=== PATIENT | male | born 1945 | race Caucasian/White ===

== ENCOUNTER 2018-07-19 09:44 | Emergency (ER) | payer MEDICARE ==
--- NOTE | 2018-07-19 11:40 | UC ---
Eye Complaint HPI - HPI Summary HPI Summary: 73 y/o male presents to the urgent care c/o pt states his rt eye began to be irritated yesterday. pt states that his eyelid is giving him pain. sharp at times. - History of Current Complaint Chief Complaint: UCEye Stated Complaint: R EYE INJURY Time Seen by Provider: 07/19/18 11:38 Hx Obtained From: Patient Onset/Duration: Gradual Onset, Lasting Days - 1 days, Still Present, Worse Since - today Timing: Constant Severity Initially: Mild Severity Currently: Mild Pain Intensity: 1 Pain Scale Used: 0-10 Numeric Location of Injury: Eye Lid (upper) - RT eye lid w/ redness and swelling Character: Dull Aggravating Factor(s): Blinking, Other - touch Alleviating Factor(s): Nothing Associated Signs And Symptoms: Positive: Drainage (Clear), Swelling - RT upper eye lid. Negative: Photophobia, Vision Impairment Bilateral, Fever - Risk Factors Penetrating Injury Risk Factor: Negative Globe Rupture Risk Factors: Negative Acute Glaucoma Risk Factors: Negative Optic Artery Occlusion Risk Factors: Negative - Allergies/Home Medications Allergies/Adverse Reactions: Allergies Allergy/AdvReac Type Severity Reaction Status Date / Time No Known Allergies Allergy Verified 07/19/18 10:11 Home Medications: Home Medications Lisinopril TAB* [Prinivil TAB 10 MG*] 10 mg PO DAILY 07/19/18 [History Confirmed 07/19/18] Simvastatin [Zocor] 40 mg PO 07/19/18 [History] PMH/Surg Hx/FS Hx/Imm Hx Previously Healthy: Yes Endocrine History: Dyslipidemia Cardiovascular History: Hypertension - Surgical History Surgical History: Yes Surgery Procedure, Year, and Place: torn rotator cuff, carple tunnel. - Family History Known Family History: Positive: Cardiac Disease, Hypertension - Social History Occupation: Retired Lives: With Family Alcohol Use: Daily Substance Use Type: None Smoking Status (MU): Never Smoked Tobacco Review of Systems Constitutional: Negative Skin: Negative Eyes: Eye Redness - RT upper eye lid redness and swelling w/ mild pain ENT: Negative Respiratory: Negative Cardiovascular: Negative Gastrointestinal: Negative Genitourinary: Negative Motor: Negative Neurovascular: Negative Musculoskeletal: Negative Neurological: Negative Psychological: Negative Is Patient Immunocompromised?: No All Other Systems Reviewed And Are Negative: Yes Physical Exam - Summary Physical Exam Summary: Vital Signs Reviewed: Yes General: Well appearing, well nourished old male in no apparent pain distress Eyes: Positive: Conjunctiva Inflamed - Visual acuity: WNL,Visual raymundo: full to confrontation.mild periorbital soft tissue swelling at the RT upper eyelid with erythema and white small pustule in the medial side of eyelid, tender to palpation. PERRLA, EOMI intact w/out limitation or complaint of pain. eyelashes clear. mild tearing and yellowish drainage observed. No ciliary flush. No chemosis, No photophobia. Normal fundoscopic exam; no proptosis, exophthalmos, nystagmus. ENT: Positive: Normal ENT inspection, Hearing grossly normal, Pharynx normal, Nasal congestion, Nasal drainage - clear, TMs normal - B/L external ear canal clear , TM's WNL. Negative: Tonsillar swelling, Tonsillar exudate Neck: Positive: Supple, Nontender, No Lymphadenopathy Respiratory: Positive: Chest nontender, Lungs clear, Normal breath sounds, No respiratory distress Cardiovascular: Positive: RRR, No Murmur, Pulses Normal, Brisk Capillary Refill Abdomen Description: Positive: Nontender, No Organomegaly, Soft. Negative: CVA Tenderness (R), CVA Tenderness (L) Bowel Sounds: Positive: Present Musculoskeletal: Positive: Strength Intact, ROM Intact, No Edema Neurological Exam: Normal Psychological Exam: Normal Skin Exam: Normal Triage Information Reviewed: Yes Vital Signs: Initial Vital Signs Temp 97.9 F 07/19/18 10:06 Pulse 63 07/19/18 10:06 Resp 18 07/19/18 10:06 BP 112/71 07/19/18 10:06 Pulse Ox 97 07/19/18 10:06 Eye Complaint Course/Dx - Differential Dx/Diagnosis Differential Diagnosis/HQI/PQRI: Conjunctivitis, Corneal Abrasion, Foreign Body , Periorbital Cellulitis, Orbital Cellulitis, Other - hordelolum Provider Diagnoses: 1- Rt eye internal hordeolum. 2- Rt eye Periorbital cellulitis Discharge - Sign-Out/Discharge Documenting (check all that apply): Patient Departure - D/c home All imaging exams completed and their final reports reviewed: No Studies - Discharge Plan Condition: Stable Disposition: HOME Prescriptions: Cephalexin CAP* [Keflex CAP*] 500 mg PO TID #21 cap Erythromycin OPTH OINT* [Erythromycin 0.5% OPTH OINT*] 1 applic RIGHT EYE TID # 1 ophth.oint Patient Education Materials: Stye (ED), Periorbital Cellulitis in Adults (ED) Referrals: Kevon Easton DO [Primary Care Provider] - 3 Days Zack Elizabeth MD [Medical Doctor] - 3 Days Additional Instructions: 1-Please take Keflex PO as directed to alleviate symptoms. 2-Please apply ophthalmic ointment in your RT eye as directed. Please apply warm compresses and massage the eye with gentle pressure 4-5 times for 10-15min throughout the day 3- If you do not improve or if symptoms worsen please f/u with economic analysis director Dr Elizabeth in 3 days for further evaluation and treatment - Billing Disposition and Condition Condition: STABLE Disposition: Home
[2018-07-19 12:21] VITALS: BP 124/62
== END 2018-07-19 12:22 | disposition home or self-care (01) ==
LOC: UCEAST 09:44
DX: H00.021 Hordeolum internum right upper eyelid (principal); L03.213 Periorbital cellulitis; E78.5 Hyperlipidemia, unspecified; I10 Essential (primary) hypertension
CPT/HCPCS: 99212; G0463

== ENCOUNTER 2018-12-21 08:02 | Emergency (ER) | payer MEDICARE ==
[2018-12-21 08:16] VITALS: BP 152/92
--- NOTE | 2018-12-21 08:38 | UC ---
Bite Injury/Animal HPI - HPI Summary HPI Summary: 73 yo old with possible tick bite, left upper arm. Was working in the garden. Nurse's note: "left arm tricep area, has wound, first noticed 48 hours ago. unsure iof its a tick embedded or not. site itches." Vital signs: BP 152/92 o/w WNL. - History of Current Complaint Chief Complaint: UCSkin Stated Complaint: TICK BITE Time Seen by Provider: 12/21/18 08:30 Pain Intensity: 4 - Allergies/Home Medications Allergies/Adverse Reactions: Allergies Allergy/AdvReac Type Severity Reaction Status Date / Time No Known Allergies Allergy Verified 12/21/18 08:16 PMH/Surg Hx/FS Hx/Imm Hx - Additional Past Medical History Additional PMH: PMH: non contributory to present complaint. Positive for HTN. Social History: Retired, recently moved to area. No local caregiver. Family Hx: CVD; HTN. Previously Healthy: Yes - Surgical History Surgical History: Yes Surgery Procedure, Year, and Place: torn rotator cuff, carple tunnel. - Family History Known Family History: Positive: Cardiac Disease, Hypertension - Social History Alcohol Use: Daily Substance Use Type: None Smoking Status (MU): Former Smoker Review of Systems All Other Systems Reviewed And Are Negative: Yes Skin: Positive: Rash - left upper arm Respiratory: Positive: Negative. Negative: Shortness Of Breath, Cough Cardiovascular: Positive: Negative. Negative: Palpitations Gastrointestinal: Positive: Negative. Negative: Abdominal Pain Genitourinary: Positive: Negative Neurovascular: Positive: Negative - no facial numbness or change Is Patient Immunocompromised?: No Physical Exam - Summary Physical Exam Summary: Appearance: The patient is well-appearing, is in no pain or distress, and is well-nourished. Eyes: Conjunctiva are clear. Pupils are equal and reactive to light and accommodation. Extra ocular muscle movement is intact. ENT: The hearing is grossly normal, the pharynx is normal, and the TMs are normal. There is no muffled or hoarse voice. No stridor. Neck: The neck is supple and there is no lymphadenopathy. Respiratory: The chest is nontender to palpation and without crepitus. The lungs are clear, there are normal breath sounds, and there is no respiratory distress. No wheezes, rales or rhonchi. Cardiovascular: Heart sounds reveal a regular rate and rhythm. There are no clicks, rubs or murmurs. There are no carotid bruits or thrills. Circulation is grossly intact. Abdomen: The abdomen is soft and nontender. There is no organomegaly. Bowel sounds are present and within normal limits. No point tenderness at McBurneys point. Musculoskeletal: Strength is intact. The patient moves all extremities. Neurological: The patient is alert. Motor and sensory are examination grossly intact. Speech is normal. Psychological: The patient displays age appropriate behavior Skin: In the area of the lateral aspect of the left upper arm, there is a 1.0 cm crusted lesion with mild, surrounding erythema. There is no ascending cellulitis or lymphangitis. This surrounding erythema could be allergic, it does itch, but it also could be the beginning of a localized cellulitis. The bite site does not look like a typical bite site. It is more resembles a spider bite site. There is no axillary adenopathy. Triage Information Reviewed: Yes Vital Signs: Initial Vital Signs Temp 97.3 F 12/21/18 08:11 Pulse 62 12/21/18 08:11 Resp 18 12/21/18 08:11 BP 152/92 12/21/18 08:11 Pulse Ox 98 12/21/18 08:11 Bite Injury Course/Dx - Course Course Of Treatment: 73 yo old with possible tick bite, left upper arm. Was working in the garden. Vital signs stable. BP 152/92. Being treated with lisinopril. Physical exam. In the area of the lateral aspect of the left upper arm, there is a 1.0 cm crusted lesion with mild, surrounding erythema. There is no ascending cellulitis or lymphangitis. This surrounding erythema could be allergic, it does itch, but it also could be the beginning of a localized cellulitis. The bite site does not look like a typical bite site. It is more resembles a spider bite site. There is no axillary adenopathy. My diagnosis is localized cellulitis. The patient will be treated with Keflex and will follow up. - Differential Dx/Diagnosis Differential Diagnosis/HQI/PQRI: Cellulitis, Other - tick exposure Provider Diagnosis: Cellulitis Discharge - Sign-Out/Discharge Documenting (check all that apply): Patient Departure All imaging exams completed and their final reports reviewed: No Studies - Discharge Plan Condition: Stable Disposition: HOME Prescriptions: Cephalexin CAP* [Keflex CAP*] 500 mg PO TID #30 cap MDD 3 Patient Education Materials: Cellulitis (DC) Referrals: Kevon Easton DO [Primary Care Provider] - Additional Instructions: WE DISCUSSED: PLEASE SEEK CARE AT THE EMERGENCY DEPARTMENT IF SYMPTOMS WORSEN OR IF NEW SYMPTOMS DEVELOP. FOLLOW UP WITH YOUR PRIMARY CARE PHYSICIAN IF CONDITION CONTINUES BEYOND 3 DAYS WITHOUT IMPROVEMENT. We are open from 7 a.m. to 10 p.m. Call us with any questions or concerns. YOUR DIAGNOSIS IS: Skin infection in the area of the bite site on her left upper arm. YOUR PRESCRIPTION RECOMMENDATION IS: Keflex 3 times a day for 10 days. OTHER INSTRUCTIONS: Lots of warm soaks, at least 3 times a day. Follow for any increasing pain, swelling, redness or fever. Recheck if any of this occurs. Hypertension Discharge Instructions: Your blood pressure reading today was 152/92, indicating HYPERTENSION. Follow- up with your primary care provider within 4 weeks for blood pressure check and appropriate recommendations and treatment, as needed. - Billing Disposition and Condition Condition: STABLE Disposition: Home
== END 2018-12-21 09:00 | disposition home or self-care (01) ==
LOC: UCEAST 08:02
DX: L03.114 Cellulitis of left upper limb (principal); I10 Essential (primary) hypertension; Z87.891 Personal history of nicotine dependence
CPT/HCPCS: 99212; G0463